=== PATIENT | female | born 1955 | race Asian ===

== ENCOUNTER 2017-09-13 11:43 | Day surgery (SDC) | END 2017-09-13 18:40 | disposition home or self-care (01) ==

== ENCOUNTER 2018-06-06 06:02 | Day surgery (SDC) | payer OTHER ==
[~2018-06-06] VITALS: Ht 139.7 cm; Wt 36.9 kg
[2018-06-06] VITALS (27 sets, daily range): BP systolic 99–175; BP diastolic 50–97; PULSE 58–88; RESP 15–28
[~2018-06-06 06:02] MED LIST: AMLO5TAB4 PO; ATOR20TA38 PO; CEFAZOLIN 2 GM/50 ML (PMX) 50 ML (FOR WT < 120 KG) IVPB ONE; DIGO125T93 PO; LACTATED RINGER'S 1,000 ML IV SCH; LOSA50TA2 PO; METO-335 PO; SOD CHLORIDE 0.9% 1,000 ML IV SCH
[2018-06-06] MEDS ORDERED: SOD CHLORIDE 0.9% 1,000 ML IV SCH (06:30)
[2018-06-06] MEDS ORDERED: LACTATED RINGER'S 1,000 ML IV SCH (06:30)
[2018-06-06] MEDS ORDERED: CEFAZOLIN 2 GM/50 ML (PMX) 50 ML (FOR WT < 120 KG) IVPB ONE (06:30)
[2018-06-06] MEDS ORDERED: BUPIVACAINE 0.25%/EPI (SDV) 30 ML INJ ONE (06:44)
[2018-06-06] MEDS ORDERED: DIGO125T93 PO (07:05)
[2018-06-06] MEDS ORDERED: AMLO5TAB4 PO (07:06)
[2018-06-06] MEDS ORDERED: METO-335 PO (07:06)
[2018-06-06] MEDS ORDERED: ATOR20TA38 PO (07:06)
[2018-06-06] MEDS ORDERED: LOSA50TA2 PO (07:07)
[2018-06-06] MEDS ORDERED: BUPIVACAINE 0.25%/EPI (SDV) 30 ML INJ INJ ONE (07:30)
--- NOTE | 2018-06-06 07:33 | PREAC ---
Date/Time of Note Date/Time of Note DATE: 06/06/18 TIME: 07:30 Anesthesia Eval and Record Evaluation Time Pre-Procedure Interview DATE: 06/06/18 TIME: 07:30 Age 63 Sex female NPO: 8 hrs Preoperative diagnosis Cholelithiasis Planned procedure Lap Cholecystectomy Past Medical History Past Medical History: Includes Cardio: HTN, Dyslipidemia, CHF Surgery & Anesthesia Issues No known issue Meds Anticoagulation: No Beta Ida within 24 hr: Yes Reported Medications Losartan Potassium* (Cozaar*) 50 Mg Tablet, 50 MG PO DAILY, #30 TAB 06/06/18 Amlodipine Besylate* (Norvasc*) 5 Mg Tablet, 5 MG PO BID, TAB 06/06/18 Atorvastatin Calcium* (Atorvastatin Calcium*) 20 Mg Tablet, 20 MG PO QHS, #30 TAB 06/06/18 Metoprolol Succinate* (Toprol XL*) 25 Mg Tab.sr.24h, 25 MG PO BID, #30 TAB 06/06/18 Digoxin* (Lanoxin*) 0.125 Mg Tablet, 0.125 MG PO DAILY, TAB 06/06/18 Discontinued Reported Medications Losartan Potassium* (Cozaar*) 50 Mg Tablet, 50 MG PO DAILY, #30 TAB 09/13/17 Amlodipine Besylate* (Norvasc*) 5 Mg Tablet, 5 MG PO DAILY, TAB 09/13/17 Atorvastatin Calcium* (Atorvastatin Calcium*) 20 Mg Tablet, 20 MG PO QHS, #30 TAB 09/13/17 Metoprolol Succinate* (Toprol XL*) 25 Mg Tab.sr.24h, 25 MG PO DAILY, #30 TAB 09/13/17 Digoxin* (Lanoxin*) 0.125 Mg Tablet, 0.125 MG PO DAILY, TAB 09/13/17 Current Medications Lactated Ringer's 1,000 ml @ 25 mls/hr Q24H IV ; Start 06/06/18 at 06:30; Stop 06/06/18 at 16:00 Sodium Chloride 1,000 ml @ 25 mls/hr Q24H IV ; Start 06/06/18 at 06:30; Stop 06/06/18 at 16:00 Meds reviewed: Yes Allergies Uncoded Allergies: CONTRAST, DYE (Allergy, Unknown, 09/12/17) Allergies Reviewed: Yes Labs/Studies Labs Reviewed: Reviewed by anesthesiologist test: N/A Studies: ECG Pre-procedure Exam Last vitals Vital Signs Date Temp Pulse Resp B/P (MAP) Pulse Ox O2 O2 Flow FiO2 Time Delivery Rate 06/06/18 98.4 77 18 135/79 99 Room Air 06:51 (97) Airway: Adequate mouth opening, Adequate thyromental dist Mallampati: Mallampati II Teeth: Normal Lung: Normal Heart: Normal ASA Physical Status ASA physical status: 3 Emergency: None Planned Anesthetic General/MAC: ETT Pre-operative Attestations Prior to commencing anesthesia and surgery, the patient was re-evaluated, there was verification of: *The patient's identity *The results of appropriate recent lab work and preoperative vital signs *The above evaluation not changing prior to induction *Anesthetic plan, risk benefits, alternative and complications discussed with patient/family; questions answered; patient/family understands, accepts and wishes to proceed. TEJINDER GALLEGOS MD Jun 06, 2018 07:33
--- NOTE | 2018-06-06 07:36 | HPN ---
Date/Time of Note Date/Time of Note DATE: 06/06/18 TIME: 07:36 Interval H&P Admission Note Pt. seen H&P reviewed: No system changes TANNER MONET Jun 06, 2018 07:36
[2018-06-06] MEDS ORDERED: MIDAZOLAM 1 MG/ML 2 ML INJ ONE (07:42)
[2018-06-06] MEDS ORDERED: FENTAnyl 50 MCG/ML VIAL ONE (07:42)
[2018-06-06] MEDS ORDERED: SEVOFLURANE 15 MIN ONE (08:00)
[2018-06-06] MEDS ORDERED: LIDOCAINE 2% (SDV) 5 ML INJ ONE (08:47)
[2018-06-06] MEDS ORDERED: PROPOFOL 20 ML ONE (08:47)
[2018-06-06] MEDS ORDERED: ROCURONIUM 50 MG INJ ONE (08:47)
--- NOTE | 2018-06-06 08:47 | SIPON ---
Date/Time of Note Date/Time of Note DATE: 06/06/18 TIME: 08:46 Operative Report Preoperative Diagnosis symptomatic cholelithiasis Postoperative Diagnosis Acute on chronic cholecystitis Operation/Procedure Performed Laparoscopic cholecystectomy Surgeon see signature line insurance legal assistant none Anesthesia: general Estimated blood loss: minimal Transfusion Required none Specimen gallbladder Grafts/Implants none Complications none TANNER MONET Jun 06, 2018 08:47
[2018-06-06] MEDS ORDERED: CEFAZOLIN 1 GM INJ ONE (08:48)
[2018-06-06] MEDS ORDERED: GLYCOPYRROLATE 0.4 MG INJ ONE (08:49)
[2018-06-06] MEDS ORDERED: ONDANSETRON 4 MG INJ ONE (08:49)
[2018-06-06] MEDS ORDERED: NEOSTIGMINE 3 MG/3 ML SYRINGE ONE (08:49)
--- NOTE | 2018-06-06 08:51 | OPR ---
Date/Time of Note Date/Time of Note DATE: 06/06/18 TIME: 08:47 Operative Report Preoperative Diagnosis Symptomatic Cholelithiasis Postoperative Diagnosis acute on chronic cholecystitis Hydrops gallbladder Operation/Procedure Performed Laparoscopic Cholecystectomy Surgeon see signature line Pocket Closer none Anesthesia Type: general Estimated Blood Loss: minimal Transfusion none Specimen gallbladder Grafts/Implants none Tubes/Drains none Complications none Indications This is a 63-year-old female with symptomatic cholelithiasis, and taken to the operating room today for definitive surgical care. Informed consent was obtained. Procedure Description She was brought to the operating room and placed supine on the operating table. After adequate IV sedation was provided a timeout was performed perioperative antibiotics were given. Sequential compression devices were already in place prior to induction of anesthesia. At this point patient was successfully intubated the abdomen was prepped and draped as per standard fashion. Next a supraumbilical incision was chosen. After infiltration with Marcaine 5 mm incision was made Optiview access into the abdomen was obtained without any difficulty. Patient was next insufflated to preset pressures. The remaining trochars were placed as per routine. Patient was placed in reverse Trendelenburg with turning to the left. The gallbladder was very distended and Galvin was compatible with a hydrops gallbladder. Cystic duct and artery were both skeletonized until the critical view was obtained. There were both clipped and divided as per routine. The gallbladder was from the liver bed using the hook electrocautery aspirate obtained. The liver bed was completely cauterized to keep it hemostatic. The gallbladder was next placed into an endoscopic catch bag and removed from the subxiphoid 12 mm incision site. The area was irrigated and washed out. The 12 m trocar site was closed with a trans-fascial 0 Vicryl suture. The skin incisions were infiltrated with Marcaine abdomen was deflated everything was completely hemostatic. Skin incisions were closed with Monocryl suture. They were all max covered with Dermabond. At this point patient tolerated the procedure well there were no intraoperative complications.. The sponge needle and instrument counts were reported to be correct by the nursing staff. TANNER MONET Jun 06, 2018 08:51
--- NOTE | 2018-06-06 08:55 | PDOCDIS ---
Discharge Instructions CONDITION [id number] Patient Condition: [id number] Good HOME CARE INSTRUCTIONS: Gifty Diet Instructions: Ghazala Low Fat /Cholesterol ACTIVITY: [id number] Activity Restrictions: Ghazala No Restrictions TANNER MONET Jun 06, 2018 08:55
--- NOTE | 2018-06-06 09:08 | PAC ---
Date/Time of Note Date/Time of Note DATE: 06/06/18 TIME: 09:07 Post-Anesthesia Notes Post-Anesthesia Note Last documented vital signs Vital Signs Date Temp Pulse Resp B/P (MAP) Pulse Ox O2 O2 Flow FiO2 Time Delivery Rate 06/06/18 98.4 77 18 135/79 99 Room Air 06:51 (97) Activity: WNL Respiratory function: WNL Cardiovascular function: WNL Mental status: Baseline Pain reasonably controlled: Yes Hydration appropriate: Yes Nausea/Vomiting absent: Yes Comments BP:142/67, P:88, Spo2:100%, T:98,8 TEJINDER GALLEGOS MD Jun 06, 2018 09:08
[2018-06-06] MEDS ORDERED: FENTAnyl 50 MCG/ML VIAL IV PRN (09:30)
[2018-06-06] MEDS ORDERED: LABETALOL HCL 20MG INJ IV PRN (09:30)
[2018-06-06] MEDS ORDERED: MEPERIDINE 25 MG INJ IV PRN (09:30)
[2018-06-06] MEDS ORDERED: DIPHENHYDRAMINE 50 MG INJ IV PRN (09:30)
[2018-06-06] MEDS ORDERED: HYDROmorphONE 1 MG/5 ML IV SYRINGE IV PRN ×2 (09:30)
[2018-06-06] MEDS ORDERED: hydrALAzine 20 MG INJ IV PRN (09:30)
[2018-06-06] MEDS: ONDANSETRON 4 MG INJ IV PRN ×2 (09:37→10:45)
[2018-06-06] MEDS ORDERED: HYDROCODONE/APAP (5/325) TAB PO ONE (12:00)
[2018-06-06] MEDS ORDERED: KETOROLAC 30 MG INJ IV STA (13:05)
== END 2018-06-06 15:33 | disposition home or self-care (01) ==
LOC: SDS 06:02
PROVIDERS: ATTEND Surgery Surgical Oncology
DX: K80.10 Calculus of gallbladder with chronic cholecystitis without obstruction (principal); I11.0 Hypertensive heart disease with heart failure; I50.9 Heart failure, unspecified
CPT/HCPCS: 47562; 86850; 86900; 86901; 88304; J0690; J1170; J1885; J2250; J2405; J2710; J3010; Z7512; Z7610